=== PATIENT | female | born 1975 | race Caucasian/White ===

== ENCOUNTER 2020-08-12 10:50 | Outpatient (REF) | payer MEDICAID, SELFPAY | END 2020-08-12 10:51 | disposition home or self-care (01) | LOC: HO.LAB 10:50 | PROVIDERS: Visit Provider Internal Medicine | DX: Z20.828 Contact with and (suspected) exposure to other viral communicable diseases (principal) | CPT/HCPCS: C9803; U0003 ==

== ENCOUNTER 2020-08-22 10:21 | Outpatient (REF) | payer MEDICAID, SELFPAY | END 2020-08-22 10:22 | disposition home or self-care (01) | LOC: HO.LAB 10:21 | PROVIDERS: PCP Nurse Practitioner Family; Visit Provider Internal Medicine | DX: Z20.828 Contact with and (suspected) exposure to other viral communicable diseases (principal) | CPT/HCPCS: C9803; U0003 ==

== ENCOUNTER 2020-12-15 13:35 | Outpatient (REF) | payer MEDICAID, SELFPAY | END 2020-12-15 13:36 | disposition home or self-care (01) | LOC: HO.LAB 13:35 | PROVIDERS: Visit Provider Internal Medicine | DX: Z20.822 Contact with and (suspected) exposure to COVID-19 (principal) | CPT/HCPCS: C9803; U0003; U0005 ==

== ENCOUNTER 2022-02-08 22:37 | Emergency (ER) | payer MEDICAID, SELFPAY ==
[2022-02-08 23:00] VITALS: BP 150/75; PULSE 76; RESP 20; TEMP 36.4; O2SAT 97; BMI 24.1
--- NOTE | 2022-02-09 00:13 | ED.DENTAL ---
HPI - Dental/Oral General Chief complaint: Dental/Oral Stated complaint: ?Dental pain Time Seen by Provider: 02/08/22 23:33 Source: patient Mode of arrival: ambulatory Limitations: no limitations History of Present Illness HPI Narrative: went to the dentist and started on amoxicillin and T#3 with little help - has taken three doses of amoxicillin, the T#3 does not help with pain, also taking motrin, planned for extraction possibly Complaint: tooth pain Location: Tooth # (5) Onset (ago): day(s) (since Tuesday) Duration: constant Severity: severe Relieving factors: other (cold water) Exacerbating factors: chewing, cold and heat Context: history of dental caries and poor dental care Associated symptoms: gum swelling Treatment prior to arrival: other (amoxicillin, tylenol and codeine) Related Data Previous Rx's Medication Instructions Recorded clindamycin HCl 300 mg capsule 300 mg PO TID 7 Days #21 cap 02/09/22 morphine 15 mg immediate release 15 mg PO TID PRN #10 tab 02/09/22 tablet Allergies Allergy/AdvReac Type Severity Reaction Status Date / Time amoxicillin [AMOXICILLIN] Allergy Unknown HIVES Verified 02/09/22 00:27 Review of Systems Review of Systems: Constitutional : No Fever, No Chills ENT/Mouth : No swallowing difficulty, no change in voice, positive dental pain, positive jaw pain, no facial swelling Eyes: No Eye Pain, No Swelling Cardiovascular : No Chest Pain, No SOB Respiratory : No Cough, No Sputum Gastrointestinal : No Nausea, No Vomiting, No Diarrhea Genitourinary : No Dysuria Musculoskeletal : No Myalgias Skin : No rash Neuro : No Weakness, No Numbness, No Headache PMFSH Past Medical History Attestation statement: The following information was validated with the patient. Medical History No pertinent past medical history Social History Social History (Updated 02/09/22 @ 00:16 by Elizabeth Wilson DO) Patient Tobacco Use Status: Never used Tobacco Advance Directives: No Physical Exam Vital Signs: Vital Signs: Last Vital Signs Temp 97.6 F 02/08/22 23:00 Pulse 76 02/08/22 23:00 Resp 20 02/08/22 23:00 BP 150/75 H 02/08/22 23:00 Pulse Ox 97 02/08/22 23:00 BMI result Body Mass Index 24.1 Appearance: Alert. Oriented X3. No acute distress. Anxious Eyes: Pupils equal, round and reactive to light. ENT: Pharynx normal. R upper first molar cracked and brown discolored tooth - gums above tooth hyperemia, no abscess felt, no facial swelling, no sublingual or submandibular swelling, does have mild R cervical lymphadenopathy. Neck: Normal inspection. Neck supple. CVS: Pulses normal. Respiratory: No respiratory distress. Abdomen: Soft and nontender. Skin: Skin warm and dry. Normal skin color. Normal skin turgor. Extremities: No lower extremity edema. No calf ttp Neuro: Oriented X 3. No motor deficit. No sensory deficit. Course Course Course Narrative: will switch to clindamycin given amoxicillin allergy feels better stable for DC MDM - Dental/Oral MDM Narrative Medical decision making narrative: 46 yo female with no sig PMH here with c/o R dental pain no abscess no signs of deeper space infection. At this time will need PO pain control - already on antibiotics. Has good outpatient follow up. Discharge Plan Discharge Clinical Impression: Toothache Patient Disposition: Home, Self-Care Instructions: Toothache (ED) Additional Instructions: return to ED for any worsening symptoms or concerns please take your medications and follow up with your dentist STOP AMOXICILLIN GIVEN ALLERGY Prescriptions: New clindamycin HCl 300 mg capsule 300 mg PO TID 7 Days Qty: 21 0RF morphine 15 mg tablet 15 mg PO TID PRN (Reason: pain) Qty: 10 0RF Rx Instructions: partial fill okay Stand Alone Forms: Work/School Release
[2022-02-09] MEDS: Morphine Sulfate Immed Release 15 MG TABLET PO (00:28)
[2022-02-09] MEDS: Ondansetron ODT 4 MG TAB.RAPDIS TRANSLINGU (00:28)
== END 2022-02-09 00:46 | disposition home or self-care (01) ==
PROVIDERS: Emergency Provider Emergency Medicine
DX: K08.89 Other specified disorders of teeth and supporting structures (principal)
CPT/HCPCS: 99283

== ENCOUNTER 2022-07-20 04:01 | Emergency (ER) | payer OTHER, SELFPAY ==
--- NOTE | ~2022-07-20 | XR_ITS ---
EXAMINATION: XR CHEST CLINICAL INFORMATION: Shortness of breath COMPARISON: 05/06/2020 TECHNIQUE: PA and lateral views of the chest were obtained. FINDINGS: EKG leads overlie the chest. Lungs are clear. No consolidation, pneumothorax, or pleural effusion. Cardiac and mediastinal contours are normal. Pulmonary vasculature is unremarkable. Trachea is midline. Minimal degenerative disc disease in the thoracic spine. XR/XR chest 2V IMPRESSION: No acute cardiopulmonary findings.
[2022-07-20 04:05] VITALS: BP 119/58; PULSE 92; RESP 17; TEMP 36.7; O2SAT 96; BMI 24.4
[2022-07-20 05:01] LABS: Influenza A PCR NEGATIVE (Negative); Influenza B PCR NEGATIVE (Negative); Resp Syncy Virus RNA Qual PCR NEGATIVE (Negative); SARS COV2 PCR INHOUSE NEGATIVE (Negative)
[2022-07-20 05:23] VITALS: BP 105/88; PULSE 77; RESP 21; TEMP 37.1; O2SAT 97
--- NOTE | 2022-07-20 05:50 | PC.NURSE ---
pt verbalized she may need to LWT. this RN discussed with pt the importance of being seen. pt agreeable to stay at this time
== END 2022-07-20 06:30 | disposition left against medical advice (07) ==
PROVIDERS: Emergency Provider Emergency Medicine
DX: M54.50 Low back pain, unspecified (principal); M25.562 Pain in left knee; M25.561 Pain in right knee; R06.02 Shortness of breath; Z20.822 Contact with and (suspected) exposure to COVID-19; Z79.899 Other long term (current) drug therapy
CPT/HCPCS: 0241U; 71046; 99283; 99284

== ENCOUNTER 2023-12-10 18:33 | Emergency (ER) | payer MEDICAID, SELFPAY ==
--- NOTE | ~2023-12-10 | XR_ITS ---
EXAMINATION: XR CHEST CLINICAL INFORMATION: Pleuritic back pain COMPARISON: Chest radiograph from 07/23/2022 TECHNIQUE: 2 views of the chest were obtained. FINDINGS: No focal consolidation. No pneumothorax. Trachea is midline. Cardiac mediastinal silhouette is not enlarged. No large pleural effusion. Osseous structures are intact. Soft tissues are unremarkable. XR/XR chest 2V IMPRESSION: No acute cardiopulmonary process.
[2023-12-10 18:36] VITALS: BP 152/54; PULSE 91; RESP 18; TEMP 36.2; O2SAT 97; BMI 23.3
--- NOTE | 2023-12-10 22:03 | ED.BACK ---
HPI - Back Pain/Injury General Chief Complaint: Back Pain/Injury Stated Complaint: Back pain Time Seen by Provider: 12/10/23 22:02 Source: patient Mode of arrival: ambulatory Limitations: no limitations History of Present Illness HPI Narrative: Patient complaining of right posteriorly mid ribs pain for last 2 months increases on palpation taking deep breath no cough no shortness a breath no rash, no fever no chills no urinary symptom Related Data Previous Rx's ?Medication ?Instructions ?Recorded clindamycin HCl 300 mg capsule 300 mg PO TID 7 days #21 caps 02/09/22 morphine 15 mg immediate release 15 mg PO TID PRN pain #10 tabs 02/09/22 tablet ibuprofen 600 mg tablet 600 mg PO Q6H PRN fever or pain 12/10/23 #30 tabs Allergies Allergy/AdvReac Type Severity Reaction Status Date / Time amoxicillin [AMOXICILLIN] Allergy Unknown HIVES Verified 12/10/23 18:43 Review of Systems Review of Systems: Yes all other systems are reviewed and are negative [facility] Past Medical History Medical History No pertinent past medical history Social History Social History Patient Tobacco Use Status: Never used Tobacco Advance Directives: No Advance Directives Information Provided: Yes Physical Exam Vital Signs: Vital Signs: Last Vital Signs Temp 97.2 F 12/10/23 18:36 Pulse 91 12/10/23 18:36 Resp 18 12/10/23 18:36 BP 152/54 H 12/10/23 18:36 Pulse Ox 97 12/10/23 18:36 O2 Del Method Room Air 12/10/23 18:36 BMI result Body Mass Index 23.3 Appearance: Alert. Oriented X3. No acute distress. Eyes: No pallor or icterus ENT: Pharynx normal. Oral Mucosa moist Neck: Normal inspection. Neck supple. CVS: Normal heart rate and rhythm. Pulses normal. Respiratory: No respiratory distress. Equal air entry bilateral, no wheezing/rales/rhonchi local muscular tenderness right 5th and 6th rib posteriorly small scratch in that area no spinal tenderness Abdomen: Soft and nontender. Bowel sounds are present, no mass palpable, no CVA tenderness Skin: Skin warm and dry. Normal skin color. Normal skin turgor. Extremities: No lower extremity edema. No calf tenderness Neuro: Oriented X 3. No motor deficit. Medications Administered Discontinued Medications Generic Name Dose Route Start Last Admin Trade Name Rubinq PRN Reason Stop Dose Admin Tramadol HCl 50 mg 12/10/23 22:15 12/10/23 22:35 Tramadol Hcl 50 Mg Tablet PO 12/10/23 22:16 50 mg ONCE ONE Administration Medical Decision Making Medical Decision Making MDM Narrative: Patient chest x-ray negative for chronic right back pain likely musculoskeletal Differential Diagnosis Differential Diagnoses: The differential diagnosis associated with the presentation includes Rib fracture/pneumonia/C/ Independent Interpretation I performed an independent interpretation of an: Plain X-Ray Radiology Impression Discussion of test interpretation with radiology: I have reviewed the radiologist's reading. Discharge Plan Discharge Clinical Impression: Thoracic back pain Patient Disposition: Home, Self-Care Instructions: Thoracic Pain (ED) Additional Instructions: chest x-ray is negative for acute no pneumonia, your pain is likely musculoskeletal Take ibuprofen for pain Prescriptions: New ibuprofen 600 mg tablet 600 mg PO Q6H PRN (Reason: fever or pain) Qty: 30 0RF No Action clindamycin HCl 300 mg capsule 300 mg PO TID 7 Days Qty: 21 0RF morphine 15 mg tablet 15 mg PO TID PRN (Reason: pain) Qty: 10 0RF Rx Instructions: partial fill okay Print Language: Setswana
[2023-12-10] MEDS: traMADoL HCL 50 MG TABLET PO (22:35)
[2023-12-10 22:41] VITALS: BP 152/54; PULSE 91; RESP 18; TEMP 36.2; O2SAT 97
== END 2023-12-10 22:42 | disposition home or self-care (01) ==
PROVIDERS: Emergency Provider Internal Medicine
DX: M54.50 Low back pain, unspecified (principal); R07.81 Pleurodynia; M54.6 Pain in thoracic spine
CPT/HCPCS: 71046; 99283

== ENCOUNTER 2025-02-25 19:47 | Emergency (ER) | payer MEDICAID, SELFPAY ==
--- NOTE | 2025-02-25 19:50 | ED.GENADULT ---
HPI - General Adult General Chief complaint: Dental/Oral Stated complaint: surgery in CT 02/15 pain throbbing irritated tongue Time Seen by Provider: 02/25/25 23:38 Source: patient Mode of arrival: ambulatory Limitations: no limitations History of Present Illness ED Provider: Dr. Saba Romero HPI narrative: patient comes to the emergency room complaining of tongue pain. Five days ago, patient states that she had a procedure done in her tone, small mass was removed from the tip of the tongue. Patient states that she has been doing well but gradually the pain has been getting worse. Patient states that she has been unable to brush her teeth because the tooth paste stings her tongue. Patient is currently taking amoxicillin, prescribed by her oral surgeon. Patient denies any fever or chills , denies any drainage Related Data Previous Rx's ?Medication ?Instructions ?Recorded clindamycin HCl 300 mg capsule 300 mg PO TID 7 days #21 caps 02/09/22 morphine 15 mg immediate release 15 mg PO TID PRN pain #10 tabs 02/09/22 tablet ibuprofen 600 mg tablet 600 mg PO Q6H PRN fever or pain 12/10/23 #30 tabs Allergies Allergy/AdvReac Type Severity Reaction Status Date / Time amoxicillin (AMOXICILLIN) Allergy Unknown HIVES Verified 02/25/25 19:54 Review of Systems Review of Systems: Constitutional : No Weight loss, No Fever, No Chills, No Night Sweats, No Fatigue, No Malaise ENT/Mouth : complaining of tongue pain 5 days after a biopsy, bleeding. No Hearing loss, No Ear Pain, No Nasal Congestion, No Sinus Pain, No Hoarseness, No sore throat, No Rhinorrhea, No Swallowing Difficulty Eyes: No Eye Pain, No Swelling, No Redness, No Foreign Body, No Discharge, No Vision Changes Cardiovascular : No Chest Pain, No SOB, No Dyspnea on Exertion, No Orthopnea, No Edema, No Palpitations Respiratory : No Cough, No Sputum, No Wheezing, No Smoke Exposure, No Dyspnea Gastrointestinal : No Nausea, No Vomiting, No Diarrhea, No Constipation, No abdominal Pain, No Hematochezia, No Melena Genitourinary : no irregular bleeding, No Dysuria, No Urinary Frequency, No Hematuria, No Urinary Incontinence, No Urgency, No Flank Pain, No Urinary Flow Changes, No Hesitancy Musculoskeletal : No joint pain, No Myalgias, No Joint Swelling Skin : No Skin Lesions, No rash Neuro : No Weakness, No Numbness, No Paresthesias, No Loss of Consciousness, No Dizziness, No Headache Psych : No Anxiety/Panic, No Depression, No SI/HI/AH/VH, No Social Issues, Heme/Lymph: No Bruising, No Bleeding,No Lymphadenopathy Endocrine : No Polyuria, No Polydipsia, No Temperature Intolerance [facility] Past Medical History Medical History No pertinent past medical history Social History Social History Patient Tobacco Use Status: Never used Tobacco Smoked in Last 30 Days: Yes Use of substances other than those prescribed or required for medical reasons: No Advance Directives: No Advance Directives Information Provided: Yes Patient : No Physical Exam ED Vital Signs: Vital Signs - 24 hr 02/25/25 19:52 Temperature 97.9 F Pulse Rate 80 Respiratory Rate 18 Blood Pressure 151/83 H Pulse Oximetry 97 Oxygen Delivery Method Room Air BMI result Body Mass Index 28.2 Const Other: Appearance: Alert. Oriented X3. No acute distress. Eyes: Pupils equal, round and reactive to light. ENT: Pharynx normal. the tip of the tongue looks white, likely after using a cautery. No signs of infection. Looks clean, no swelling Neck: Normal inspection. Neck supple. No lymph nodes noted. No crepitus CVS: Normal heart rate and rhythm. Pulses normal. Normal S1 and S2 Respiratory: No respiratory distress. Breath sounds normal. No Wheezing. No rales Abdomen: Soft and nontender. No rigidity. No distention. Skin: Skin warm and dry. Normal skin color. Normal skin turgor. Extremities: No lower extremity edema. No Lacerations. No Rash Neuro: Oriented X 3. No motor deficit. No sensory deficit. Moving all extremities. No slurred speech. CN 2 through 12 grossly intact Psych: calm, cooperative, normal affect Course Course Course Narrative: This is an RME: Additional HPI, ROS, PE not included below will be deferred to primary provider. RME assessment and note performed by: Caitie Guerrero PA-C This is a [id number]-female who presents to the ER with complaints of severe tongue pain. Recently had tongue lesion excision in CT, was placed on amoxicillin. No difficulty swallowing or breathing. Went to [facility] ED on 02/22 who instructed her to use chloroseptic spray on her tongue. She called her surgeon who told her the same, and her f.u is on 02/28; taking ibuprofen without any relief. Reporting chills.Was placed on amoxicillin which she is allergic to. Plan: Labs, further ER eval needed Medical Decision Making Medical Decision Making MDM Narrative: overall, physical exam, the tongue does not seem to be infected. Patient has been taking amoxicillin for 4 days. Today, she was informed in triage that it is in her medical chart that she is allergic to amoxicillin. However, patient has been taking this medication for 4 days without any events or signs of allergic reaction. Patient instructed to continue taking the medication as instructed. Patient has been taking ibuprofen for the pain without any relief. Patient was given a 1 time dose of tramadol in the ED and a prescription was sent to her pharmacy. Patient was instructed to have close follow-up with her oral surgeon. Patient has an appointment in 2 days Lab Data 02/25/25 20:16 02/25/25 20:16 Labs: Lab Results 02/25/25 Range/Units 20:16 WBC 16.0 H (4.8-10.8) X10*3/uL RBC 4.43 (4.20-5.50) X10*6/uL Hgb 14.0 (12.0-16.0) g/dl Hct 40.5 (37.0-47.0) % MCV 91.4 (80.0-98.0) fL MCH 31.6 (27.0-33.0) pg MCHC 34.6 (31.0-35.0) g/dl RDW 12.4 (11.0-16.0) % Plt Count 529 H (160-400) X10*3/uL MPV 9.6 (9.4-12.3) fL Immature Gran % (Auto) 0.7 H (0.0-0.4) % Neut % (Auto) 72.0 (45-73) % Lymph % (Auto) 19.2 L (20-40) % [place] % (Auto) 5.8 (2-11) % Eos % (Auto) 1.7 (0-4) % Baso % (Auto) 0.6 (0-2) % Lymph # (Auto) 3.1 (1.2-4.9) X10*3/uL [place] # (Auto) 0.9 (0.1-1.2) X10*3/uL Eos # (Auto) 0.3 (0.0-0.4) X10*3/uL Baso # (Auto) 0.1 (0.0-0.2) X10*3/uL Abs Immat Gran (auto) 0.12 H (0.00-0.03) X10*3/uL Absolute Neuts (auto) 11.5 H (2.0-8.3) x10*3/uL Absolute Nucleated RBC 0.000 (0.0-0.012) X10*3/uL Nucleated RBC % (auto) 0.0 (0.0-0.2) /100WBC Sodium 140 (135-145) mmol/L Potassium 4.0 (3.3-5.1) mmol/L Chloride 109 H (96-108) mmol/L Carbon Dioxide 20 L (22-29) mmol/L Anion Gap 15 (12-20) BUN 15 (9-16) mg/dL Creatinine 0.83 (0.5-1.4) mg/dL Estim Creat Clear Calc 74.2 Estimated GFR > 60 Random Glucose 93 (60-115) mg/dL Calcium 9.5 (8.4-10.2) mg/dL Total Bilirubin 0.4 (0.0-1.0) mg/dL AST 27 (5-31) U/L ALT 20 (0-31) U/L Alkaline Phosphatase 72 (39-117) U/L Total Protein 7.8 (6.5-8.0) g/dL Albumin 5.1 H (3.5-5.0) g/dL Discharge Plan Discharge Clinical Impression: Postoperative pain Patient Disposition: Home, Self-Care Instructions: Opioid Safety (ED), Pain Management (ED) Additional Instructions: Please follow-up with your primary care physician tomorrow. If you have any worsening or new symptoms, please return to the emergency room or call 911 Prescriptions: No Action clindamycin HCl 300 mg capsule 300 mg PO TID 7 Days Qty: 21 0RF morphine 15 mg tablet 15 mg PO TID PRN (Reason: pain) Qty: 10 0RF Rx Instructions: partial fill okay ibuprofen 600 mg tablet 600 mg PO Q6H PRN (Reason: fever or pain) Qty: 30 0RF Print Language: Bulgarian
[2025-02-25 19:52] VITALS: BP 151/83; PULSE 80; RESP 18; TEMP 36.6; O2SAT 97; BMI 28.2
[2025-02-25 20:20] LABS: MANUAL DIFF FLAG NO
[2025-02-25 20:21] LABS: Basophils Absolute Auto 0.1 X10*3/uL (0.0-0.2); Basophils Percent Auto 0.6 % (0-2); Eosinophils Absolute Auto 0.3 X10*3/uL (0.0-0.4); Eosinophils Percent Auto 1.7 % (0-4); Hematocrit 40.5 % (37.0-47.0); Imm Gran Abs Auto 0.12 X10*3/uL (0.00-0.03); Imm Gran Pct Auto 0.7 % (0.0-0.4); Lymphocytes Absolute Auto 3.1 X10*3/uL (1.2-4.9); Lymphocytes Percent Auto 19.2 % (20-40); Mean Corpuscular HGB Conc 34.6 g/dl (31.0-35.0); Mean Corpuscular Hemoglobin 31.6 pg (27.0-33.0); Mean Corpuscular Volume 91.4 fL (80.0-98.0); Mean Platelet Volume 9.6 fL (9.4-12.3); Monocytes Absolute Auto 0.9 X10*3/uL (0.1-1.2); Monocytes Percent Auto 5.8 % (2-11); Neutrophils Absolute Auto 11.5 x10*3/uL (2.0-8.3); Platelet Count 529 X10*3/uL (160-400); Red Blood Count 4.43 X10*6/uL (4.20-5.50); Red Cell Distribution Width 12.4 % (11.0-16.0)
[2025-02-25 20:34] LABS: Alanine Aminotransferase 20 U/L (0-31); Albumin Level 5.1 g/dL (3.5-5.0); Alkaline Phosphatase 72 U/L (39-117); Anion Gap 15 (12-20); Aspartate Amino Transferase 27 U/L (5-31); Bilirubin Total 0.4 mg/dL (0.0-1.0); Blood Urea Nitrogen 15 mg/dL (9-16); Calcium 9.5 mg/dL (8.4-10.2); Carbon Dioxide 20 mmol/L (22-29); Chloride 109 mmol/L (96-108); Creatinine Clr Calc Pharmacy 74.2; Estimated Glomerular Filt Rate > 60; Glucose Random 93 mg/dL (60-115); Sodium 140 mmol/L (135-145); Total Protein 7.8 g/dL (6.5-8.0)
[2025-02-25] MEDS: traMADoL HCL 50 MG TABLET PO (23:57)
[2025-02-25 23:59] VITALS: BP 139/49; PULSE 68; RESP 18; TEMP 37; O2SAT 98
[2025-02-26 00:14] VITALS: BP 139/49; PULSE 68; RESP 18; TEMP 37; O2SAT 98
== END 2025-02-26 00:14 | disposition home or self-care (01) ==
PROVIDERS: Physician Assistant Medical; Emergency Provider Emergency Medicine
DX: G89.18 Other acute postprocedural pain (principal); G89.29 Other chronic pain; Z79.899 Other long term (current) drug therapy
CPT/HCPCS: 36415; 80053; 85025; 99283; 99284